=== PATIENT | female | born 1955 | race Caucasian/White ===

== ENCOUNTER → 2016-11-12 | Outpatient (CLI) | payer OTHER ==
--- NOTE | 2016-11-13 11:10 | MM ---
Reason for exam: screening (asymptomatic). Last mammogram was performed 1 year and 1 month ago. History: Patient is postmenopausal, has history of endometrial cancer at age 50, and had first child at age 31. Family history of breast cancer in mother at age 65. Cyst aspiration of the left breast. Cyst aspiration of the right breast. Physical Findings: A clinical breast exam by your physician is recommended on an annual basis and results should be correlated with mammographic findings. MG Screening Mammo w CAD Bilateral CC and MLO view(s) were taken. Prior study comparison: October 07, 2015, bilateral MG screening mammo w CAD. September 02, 2014, bilateral MG screening mammo w CAD. August 27, 2013, [facility] DIGITAL LEFT BREAST MAMMOGRAM w/CAD. The breast tissue is heterogeneously dense. This may lower the sensitivity of mammography. No significant changes when compared with prior studies. ASSESSMENT: Negative, BI-RAD 1 RECOMMENDATION: Routine screening mammogram of both breasts in 1 year.
== END | disposition home or self-care (01) ==
LOC: RADMAMWWP 10:16
PROVIDERS: ATTEND Obstetrics & Gynecology
DX: Z12.31 Encounter for screening mammogram for malignant neoplasm of breast (principal); Z80.3 Family history of malignant neoplasm of breast

== ENCOUNTER → 2017-12-11 | Outpatient (CLI) | payer OTHER ==
--- NOTE | 2017-12-13 10:37 | MM ---
Reason for exam: screening (asymptomatic). Last mammogram was performed 1 year and 1 month ago. History: Patient is postmenopausal, has history of other cancer at age 50, and had first child at age 31. Family history of breast cancer in mother at age 65. Cyst aspiration of the left breast. Cyst aspiration of the right breast. Physical Findings: A clinical breast exam by your physician is recommended on an annual basis and results should be correlated with mammographic findings. MG Screening Mammo w CAD Bilateral CC and MLO view(s) were taken. Prior study comparison: November 12, 2016, bilateral MG screening mammo w CAD. October 07, 2015, bilateral MG screening mammo w CAD. The breast tissue is heterogeneously dense. This may lower the sensitivity of mammography. No significant changes when compared with prior studies. ASSESSMENT: Negative, BI-RAD 1 RECOMMENDATION: Routine screening mammogram of both breasts in 1 year.
== END | disposition home or self-care (01) ==
LOC: RADMAMWWP 09:53
PROVIDERS: ATTEND Obstetrics & Gynecology
DX: Z12.31 Encounter for screening mammogram for malignant neoplasm of breast (principal); Z80.3 Family history of malignant neoplasm of breast
CPT/HCPCS: 77067

== ENCOUNTER → 2018-03-20 | Outpatient (CLI) | payer OTHER ==
--- NOTE | 2018-03-20 08:33 | US ---
EXAMINATION TYPE: US abdomen limited DATE OF EXAM: 03/20/2018 COMPARISON: CT 2011, US 2009 CLINICAL HISTORY: R94.5 Abnormal Liver Functions. Elevated liver enzymes, history of cholecystectomy. EXAM MEASUREMENTS: Liver Length: 16.7 cm Gallbladder Wall: surgically absent CBD: 0.5 cm Right Kidney: 10.0 x 5.0 x 5.4 cm Difficult and limited study due to patient body habitus Pancreas: visualized portions wnl, limited by overlying midline bowel gas Liver: increased attenuation, decreased visualization of vessels, increased echogenicity throughout, heterogeneous, 2.0 x 2.3 x 2.2cm cystic lesion near gallbladder fossa Gallbladder: surgically absent Evidence for sonographic Persaud's sign: no CBD: visualized portions wnl, limited by overlying bowel gas Right Kidney: 0.4cm echogenic focus mid pole IMPRESSION: 1. Findings most compatible with hepatic steatosis appearing moderate in degree with solitary anechoi c hepatic cyst measuring up to 2.3 cm. 2. Nonobstructing 4 mm right renal calculus. 3. Limited visualization of the pancreas.
== END ==
LOC: RADUSWWP 07:28
PROVIDERS: ATTEND Internal Medicine
DX: R94.5 Abnormal results of liver function studies (principal)
CPT/HCPCS: 76705

== ENCOUNTER → 2018-12-15 | Outpatient (CLI) | payer OTHER ==
--- NOTE | 2018-12-16 13:53 | MM ---
Reason for exam: screening (asymptomatic). Last mammogram was performed 1 year ago. History: Patient is postmenopausal, has history of other cancer at age 50, and had first child at age 31. Family history of breast cancer in mother at age 65. Cyst aspiration of the left breast. Cyst aspiration of the right breast. Physical Findings: A clinical breast exam by your physician is recommended on an annual basis and results should be correlated with mammographic findings. MG 3D Screening Mammo W/Cad Bilateral CC and MLO view(s) were taken. Prior study comparison: December 11, 2017, bilateral MG screening mammo w CAD. November 12, 2016, bilateral MG screening mammo w CAD. The breast tissue is heterogeneously dense. This may lower the sensitivity of mammography. No suspicious abnormality. No significant changes when compared with prior studies. ASSESSMENT: Negative, BI-RAD 1 RECOMMENDATION: Routine screening mammogram of both breasts in 1 year.
== END | disposition home or self-care (01) ==
LOC: RADMAMWWP 09:20
PROVIDERS: ATTEND Obstetrics & Gynecology
DX: Z12.31 Encounter for screening mammogram for malignant neoplasm of breast (principal); Z80.3 Family history of malignant neoplasm of breast
CPT/HCPCS: 77063; 77067

== ENCOUNTER 2018-12-19 07:08 | Day surgery (SDC) | payer OTHER ==
[2018-12-17 09:39] VITALS: BMI 29.9
[~2018-12-19 07:08] MED LIST: LACTATED RINGERS 1,000 ML IV SCH; LIDOCAINE 1% 20 ML VIAL (10MG/ML) FOR IV START INTRADERMA PRN
[2018-12-19 07:25] VITALS: TEMP 97.8
[2018-12-19] MEDS ORDERED: ONDANSETRON 4 MG/2 ML VIAL IVP STA (07:35)
[2018-12-19] MEDS ORDERED: ONDANSETRON 4 MG/2 ML VIAL IVP ONE (07:36)
[2018-12-19] MEDS ORDERED: fentaNYL (PF) 50 MCG/ML 2 ML AMP ONE (07:51)
[2018-12-19] MEDS ORDERED: PROPOFOL 10 MG/ML 20 ML VIAL IV ONE (07:51)
[2018-12-19] MEDS ORDERED: MIDAZOLAM 2 MG/2 ML VIAL ONE (07:51)
--- NOTE | 2018-12-19 07:58 | P.GSHP ---
History of Present Illness H&P Date: 12/19/18 Chief Complaint: Colon cancer screening Patient here today for colonoscopy. Last colonoscopy 5 years ago. History of colon polyps. No bowel complaints. No family history of colon cancer. Past Medical History Past Medical History: Cancer, GERD/Reflux, Hypertension, Thyroid Disorder Additional Past Medical History / Comment(s): VULVA CANCER. KIDNEY STONES. SEASONAL ALLERGIES History of Any Multi-Drug Resistant Organisms: None Reported Past Surgical History: Cholecystectomy Additional Past Surgical History / Comment(s): COLONOSCOPY. KIDNEY STONE REMOVAL. VULVA CANCER REMOVAL-SEVERAL PROCEDURES Past Anesthesia/Blood Transfusion Reactions: Postoperative Nausea & Vomiting (PONV) Smoking Status: Former smoker - Past Family History Father Family Medical History: Cancer Mother Family Medical History: Cancer Sister(s) Family Medical History: Cancer Medications and Allergies Home Medications Medication Instructions Recorded Confirmed Type Aspirin [Adult Low Dose Aspirin EC] 81 mg PO DAILY 12/17/18 12/19/18 History Calcium Carbonate/Vitamin D3 1 tab PO DAILY 12/17/18 12/19/18 History [Calcium 600-Vit D3 200 Tablet] Levothyroxine Sodium [Synthroid] 50 mcg PO DAILY 12/17/18 12/19/18 History Montelukast [Singulair] 10 mg PO DAILY 12/17/18 12/19/18 History Multivit/Folic Acid/Vit K1 1 tab PO DAILY 12/17/18 12/19/18 History [One-A-Day Women's 50 Plus Tab] Omeprazole 20 mg PO DAILY 12/17/18 12/19/18 History Valsartan/Hydrochlorothiazide 1 each PO DAILY 12/17/18 12/19/18 History [Valsartan-Hctz 80-12.5 mg Tab] Vit C/E/Zn/Coppr/Lutein/Zeaxan 1 each PO DAILY 12/17/18 12/19/18 History [Preservision Areds 2 Softgel] Allergies Allergy/AdvReac Type Severity Reaction Status Date / Time ciprofloxacin [From Cipro] Allergy STIFF NECK Verified 12/17/18 09:31 Sulfa (Sulfonamide Allergy Anaphylaxis Verified 12/17/18 09:31 Antibiotics) Surgical - Exam Vital Signs Temp Pulse Resp BP Pulse Ox 97.8 F 110 H 20 159/79 94 L 12/19/18 07:23 12/19/18 07:23 12/19/18 07:23 12/19/18 07:23 12/19/18 07:23 Physical exam: General: Well-developed, well-nourished HEENT: Normocephalic, sclerae nonicteric Abdomen: Nontender, nondistended Extremities: No edema Neuro: Alert and oriented Assessment and Plan (1) Colon cancer screening Narrative/Plan: Will proceed with colonoscopy at this time Current Visit: Yes Status: Acute Code(s): Z12.11 - ENCOUNTER FOR SCREENING FOR MALIGNANT NEOPLASM OF COLON SNOMED Code(s): 369085184
--- NOTE | 2018-12-19 08:14 | P.PCN ---
Date of Procedure: 12/19/18 Procedure(s) Performed: PREOPERATIVE DIAGNOSIS: Colon cancer screening POSTOPERATIVE DIAGNOSIS: Small sigmoid polyp PROCEDURE: Colonoscopy with snare polypectomy ANESTHESIA: MAC SURGEON: Tiburcio Villarreal M.D. SPECIMENS: None ENDOSCOPIC PROCEDURE: The patient was placed on the endoscopy table in the left decubitus position. The Olympus colonoscope was inserted into the anus and passed under direct visualization to the base of the cecum. The appendiceal orifice was visualized. From that point the scope was slowly withdrawn inspecting all surfaces carefully. There were no neoplastic inflammatory or polypoid lesions throughout the cecum, ascending, transverse, and descending colon. In the sigmoid colon was noted be a small polyp. This was removed using the snare with cautery technique. In the process of removal of small polyp was noted to be fulgurated completely. No specimen was obtained. There was no visible diverticulosis. Digital rectal examination was normal. The patient was taken to the recovery room in stable condition per anesthesia guidelines. RECOMMENDATIONS: Advance diet. Follow colonoscopy 5 years.
[2018-12-19 08:37] VITALS: BP 137/78; PULSE 102; RESP 18
== END 2018-12-19 08:59 | disposition home or self-care (01) ==
LOC: ORWHC2ENDO 07:08
PROVIDERS: ATTEND Surgery
DX: Z12.11 Encounter for screening for malignant neoplasm of colon (principal); K63.5 Polyp of colon; Z86.010 Personal history of colon polyps; K21.9 Gastro-esophageal reflux disease without esophagitis; I10 Essential (primary) hypertension; E07.9 Disorder of thyroid, unspecified; Z85.89 Personal history of malignant neoplasm of other organs and systems; Z87.442 Personal history of urinary calculi; Z90.49 Acquired absence of other specified parts of digestive tract; Z87.891 Personal history of nicotine dependence; Z79.82 Long term (current) use of aspirin; Z79.890 Hormone replacement therapy; Z79.899 Other long term (current) drug therapy; Z88.1 Allergy status to other antibiotic agents; Z88.2 Allergy status to sulfonamides; Z91.09 Other allergy status, other than to drugs and biological substances
CPT/HCPCS: 45385; J2250; J2405; J3010; J2704

== ENCOUNTER → 2020-03-04 | Outpatient (CLI) | payer OTHER ==
--- NOTE | 2020-03-07 09:38 | MM ---
Reason for exam: screening (asymptomatic). Last mammogram was performed 1 year and 3 months ago. History: Patient is postmenopausal, has history of other cancer at age 50, and had first child at age 31. Family history of breast cancer in mother at age 65. Cyst aspiration of the left breast. Cyst aspiration of the right breast. Physical Findings: A clinical breast exam by your physician is recommended on an annual basis and results should be correlated with mammographic findings. MG 3D Screening Mammo W/Cad Bilateral CC and MLO view(s) were taken. Prior study comparison: December 15, 2018, bilateral MG 3d screening mammo w/cad. December 11, 2017, bilateral MG screening mammo w CAD. The breast tissue is extremely dense which could obscure a lesion on mammography. No significant changes when compared with prior studies. ASSESSMENT: Benign, BI-RAD 2 RECOMMENDATION: Routine screening mammogram of both breasts in 1 year.
== END | disposition home or self-care (01) ==
LOC: RADMAMWWP 10:51
PROVIDERS: ATTEND Obstetrics & Gynecology
DX: Z12.31 Encounter for screening mammogram for malignant neoplasm of breast (principal); Z80.3 Family history of malignant neoplasm of breast
CPT/HCPCS: 77063; 77067

== ENCOUNTER 2020-10-13 16:37 | Emergency (ER) | payer MEDICARE, OTHER ==
[2020-10-13] MEDS ORDERED: ACETAMINOPHEN TAB 500 MG TAB PO STA (18:29)
--- NOTE | 2020-10-13 18:33 | ED ---
General Adult HPI - General Chief complaint: Upper Respiratory Infection Stated complaint: Covid, abd pain, headache, fever Time Seen by Provider: 10/13/20 18:00 Source: patient Mode of arrival: ambulatory Limitations: no limitations - History of Present Illness Initial comments: 65-year-old female presents to the emergency department with a chief complaint of cough and fatigue. Patient reports she developed symptoms about 9 days ago and 2 days after she tested positive for Covid. Patient was able to show me the results on her phone. Patient reports her symptoms are not improving. She continues to have generalized take a nonproductive cough. States she did have a fever at home has been taking Tylenol and Mucinex with no significant improveme nt his symptoms. Reports decreased appetite and generalized myalgias. She denies any chest pain or shortness of breath. She does report loss of smell and taste. - Related Data Home Medications Medication Instructions Recorded Confirmed Aspirin [Adult Low Dose Aspirin EC] 81 mg PO DAILY 12/17/18 12/19/18 Calcium Carbonate/Vitamin D3 1 tab PO DAILY 12/17/18 12/19/18 [Calcium 600-Vit D3 200 Tablet] Levothyroxine Sodium [Synthroid] 50 mcg PO DAILY 12/17/18 12/19/18 Montelukast [Singulair] 10 mg PO DAILY 12/17/18 12/19/18 Multivit/Folic Acid/Vit K1 1 tab PO DAILY 12/17/18 12/19/18 [One-A-Day Women's 50 Plus Tab] Omeprazole 20 mg PO DAILY 12/17/18 12/19/18 Valsartan/Hydrochlorothiazide 1 each PO DAILY 12/17/18 12/19/18 [Valsartan-Hctz 80-12.5 mg Tab] Vit C/E/Zn/Coppr/Lutein/Zeaxan 1 each PO DAILY 12/17/18 12/19/18 [Preservision Areds 2 Softgel] Allergies Allergy/AdvReac Type Severity Reaction Status Date / Time ciprofloxacin [From Cipro] Allergy STIFF NECK Verified 10/13/20 16:39 Sulfa (Sulfonamide Allergy Anaphylaxis Verified 10/13/20 16:39 Antibiotics) Review of Systems ROS Statement: Those systems with pertinent positive or pertinent negative responses have been documented in the HPI. ROS Other: All systems not noted in ROS Statement are negative. Past Medical History Past Medical History: Cancer, GERD/Reflux, Hypertension, Thyroid Disorder Additional Past Medical History / Comment(s): VULVA CANCER. KIDNEY STONES. SEASONAL ALLERGIES History of Any Multi-Drug Resistant Organisms: None Reported Past Surgical History: Cholecystectomy Additional Past Surgical History / Comment(s): COLONOSCOPY. KIDNEY STONE REMOVAL. VULVA CANCER REMOVAL-SEVERAL PROCEDURES Past Anesthesia/Blood Transfusion Reactions: Postoperative Nausea & Vomiting (PONV) Past Psychological History: No Psychological Hx Reported Smoking Status: Never smoker Past Alcohol Use History: None Reported Past Drug Use History: None Reported - Past Family History Father Family Medical History: Cancer Mother Family Medical History: Cancer Sister(s) Family Medical History: Cancer General Exam Limitations: no limitations General appearance: alert, in no apparent distress Head exam: Present: atraumatic, normocephalic, normal inspection Eye exam: Present: normal appearance, PERRL, EOMI Pupils: Present: normal accommodation ENT exam: Present: normal exam, normal oropharynx, mucous membranes moist, TM's normal bilaterally, normal external ear exam Neck exam: Present: normal inspection, full ROM. Absent: tenderness, lymphadenopathy Respiratory exam: Present: normal lung sounds bilaterally. Absent: respiratory distress, wheezes, rales, rhonchi, stridor, chest wall tenderness, accessory muscle use Cardiovascular Exam: Present: regular rate, normal rhythm, normal heart sounds. Absent: systolic murmur Extremities exam: Present: normal inspection, full ROM, normal capillary refill. Absent: tenderness, pedal edema, joint swelling Back exam: Present: normal inspection, full ROM. Absent: tenderness, CVA tenderness (R), CVA tenderness (L) Neurological exam: Present: alert, oriented X3, CN II-XII intact, normal gait Psychiatric exam: Present: normal affect, normal mood Skin exam: Present: warm, dry, intact, normal color Course Vital Signs 10/13/20 10/13/20 10/13/20 16:39 18:18 19:06 Temperature 98.8 F 103.3 F H Pulse Rate 117 H 100 Respiratory 20 18 Rate Blood Pressure 148/79 133/88 O2 Sat by Pulse 98 95 Oximetry Medical Decision Making - Medical Decision Making 65-year-old female presents emergency Department with a chief complaint of C ovid. On physical examination, patient is well-appearing. Lungs are clear to auscultation. Vital signs are within normal limits aside from slight tachycardia likely secondary to to fever. Patient was given Tylenol. Chest x- ray reveals an early developing pneumonia. She does not have any chest pain or shortness of breath. She fits the criteria for a monoclonal antibody. This was administered with 1 hour observation after administration. At this time, patient care signed off to Dr. Chaney. Disposition Clinical Impression: Pneumonia due to COVID-19 virus Disposition: HOME SELF-CARE Condition: Stable Instructions (If sedation given, give patient instructions): Coronavirus Disease 2019 (COVID-19) Additional Instructions: Please return to the Emergency Department if symptoms worsen or any other concerns. Is patient prescribed a controlled substance at d/c from ED?: No Referrals: Catracho Santillan MD [Primary Care Provider] - 1-2 days Time of Disposition: 19:33
--- NOTE | 2020-10-13 18:41 | XR ---
EXAMINATION TYPE: XR chest 1V portable DATE OF EXAM: 10/13/2020 HISTORY: Shortness of breath. COMPARISON: None. TECHNIQUE: Single view of the chest is submitted. FINDINGS: Demonstrated are scattered senescent parenchymal change. Vague densities within the midlung zones may reflect developing pneumonia. Correlate clinically. The heart is stable. Hilar and mediastinal structures are within normal limits. Degenerative changes are seen of the dorsal spine. IMPRESSION: 1. Vague densities within the midlung zones may reflect developing pneumonia. Correlate clinically.
[2020-10-13] MEDS ORDERED: BAMLANIVIMAB (EUA) 700 MG, ETESEVIMAB (EUA) 1,400 MG in SODIUM CHLORIDE 0.9% 50 ML IVPB ONE (18:45)
[2020-10-13] MEDS ORDERED: SODIUM CHLORIDE 0.9% 50 ML IVPB ONE (18:45)
[2020-10-13 19:36] VITALS: BP 132/81
[2020-10-13 20:58] VITALS: PULSE 74; RESP 15; TEMP 99.4
== END 2020-10-13 20:51 | disposition home or self-care (01) ==
LOC: EC 16:37
DX: U07.1 COVID-19 (principal); J12.82 Pneumonia due to coronavirus disease 2019; I10 Essential (primary) hypertension; K21.9 Gastro-esophageal reflux disease without esophagitis; Z85.44 Personal history of malignant neoplasm of other female genital organs; Z79.82 Long term (current) use of aspirin; Z88.1 Allergy status to other antibiotic agents; Z88.2 Allergy status to sulfonamides
CPT/HCPCS: 71045; 99284; Q0245

== ENCOUNTER 2020-10-14 17:53 | Inpatient (IN) | payer MEDICARE ==
[2020-10-14] MEDS ORDERED: DEXAMETHASONE SOD PHOSPHATE 10 MG/ML 1 ML VIAL IV STA (19:13)
[2020-10-14] MEDS ORDERED: ENOXAPARIN 40 MG/0.4 ML SYRINGE SQ STA (19:24)
[2020-10-14] MEDS ORDERED: ACETAMINOPHEN TAB 325 MG TAB PO PRN (19:25)
[2020-10-14] MEDS ORDERED: NALOXONE 0.4 MG/ML 1 ML VIAL IV PRN (19:25)
--- NOTE | 2020-10-14 19:29 | ED ---
General Adult HPI - General Chief complaint: Shortness of Breath Stated complaint: Covid+/headache/fever Time Seen by Provider: 10/14/20 19:12 Source: patient, RN notes reviewed, old records reviewed Mode of arrival: ambulatory Limitations: no limitations - History of Present Illness Initial comments: 65-year-old female who had been diagnosed with coronavirus approximately 10 days ago presenting for evaluation of cough, headache. Patient was seen in the emergency department yesterday with similar complaints, she was given monoclonal antibodies. She had been discharged home with stable vitals. Primary care had called to check on the patient today and had requested that the patient presented emergency department for admission. Patient does report report a persistent cough and mild dyspnea. Headache as well as fever. - Related Data Home Medications Medication Instructions Recorded Confirmed Aspirin [Adult Low Dose Aspirin EC] 81 mg PO DAILY 12/17/18 12/19/18 Calcium Carbonate/Vitamin D3 1 tab PO DAILY 12/17/18 12/19/18 [Calcium 600-Vit D3 200 Tablet] Levothyroxine Sodium [Synthroid] 50 mcg PO DAILY 12/17/18 12/19/18 Montelukast [Singulair] 10 mg PO DAILY 12/17/18 12/19/18 Multivit/Folic Acid/Vit K1 1 tab PO DAILY 12/17/18 12/19/18 [One-A-Day Women's 50 Plus Tab] Omeprazole 20 mg PO DAILY 12/17/18 12/19/18 Valsartan/Hydrochlorothiazide 1 each PO DAILY 12/17/18 12/19/18 [Valsartan-Hctz 80-12.5 mg Tab] Vit C/E/Zn/Coppr/Lutein/Zeaxan 1 each PO DAILY 12/17/18 12/19/18 [Preservision Areds 2 Softgel] Allergies Allergy/AdvReac Type Severity Reaction Status Date / Time ciprofloxacin [From Cipro] Allergy STIFF NECK Verified 10/14/20 18:26 Sulfa (Sulfonamide Allergy Anaphylaxis Verified 10/14/20 18:26 Antibiotics) Review of Systems ROS Statement: Those systems with pertinent positive or pertinent negative responses have been documented in the HPI. ROS Other: All systems not noted in ROS Statement are negative. Past Medical History Past Medical History: Cancer, GERD/Reflux, Hypertension, Thyroid Disorder Additional Past Medical History / Comment(s): VULVA CANCER. KIDNEY STONES. SEA IMELDA ALLERGIES History of Any Multi-Drug Resistant Organisms: None Reported Past Surgical History: Cholecystectomy Additional Past Surgical History / Comment(s): COLONOSCOPY. KIDNEY STONE REMOVAL. VULVA CANCER REMOVAL-SEVERAL PROCEDURES Past Anesthesia/Blood Transfusion Reactions: Postoperative Nausea & Vomiting (PONV) Past Psychological History: No Psychological Hx Reported Smoking Status: Never smoker Past Alcohol Use History: None Reported Past Drug Use History: None Reported - Past Family History Father Family Medical History: Cancer Mother Family Medical History: Cancer Sister(s) Family Medical History: Cancer General Exam Limitations: no limitations General appearance: alert, in no apparent distress Head exam: Present: atraumatic, normocephalic Eye exam: Present: normal appearance, PERRL ENT exam: Present: normal exam Neck exam: Present: normal inspection. Absent: tenderness, meningismus Respiratory exam: Present: rhonchi. Absent: respiratory distress, wheezes Cardiovascular Exam: Present: regular rate, normal rhythm GI/Abdominal exam: Present: soft. Absent: distended, tenderness, guarding Extremities exam: Present: normal inspection, normal capillary refill. Absent: pedal edema, calf tenderness Neurological exam: Present: alert, oriented X3, CN II-XII intact. Absent: motor sensory deficit Psychiatric exam: Present: normal affect, normal mood Skin exam: Present: warm, dry, intact. Absent: cyanosis, diaphoretic Course Vital Signs 10/14/20 18:21 Temperature 98.1 F Pulse Rate 100 Respiratory 20 Rate Blood Pressure 132/80 O2 Sat by Pulse 96 Oximetry Medical Decision Making - Medical Decision Making 65-year-old female with coronavirus, day 10. Sent in by primary care physician for admission. Dr. Santillan recommending steroids, Remdesivir, and Lovenox. Labs have been ordered including inflammatory markers. X-ray which was performed yesterday did show a bilateral pneumonia. Patient given Lovenox and Decadron in the emergency department. She had received Guillermo antibodies yesterday. Pulmonary placed on consult. Disposition Clinical Impression: Pneumonia due to COVID-19 virus Disposition: ADMITTED IP TO THIS HOSP Condition: Stable Is patient prescribed a controlled substance at d/c from ED?: No Referrals: Catracho Santillan MD [Primary Care Provider] - 1-2 days Decision to Admit Reason: Admit from EC Decision Date: 10/14/20 Decision Time: 19:29
[2020-10-14 20:00] LABS: Basophils % (A) 1 %; Eosinophils % (A) 0 %; HCT 41.8 % (34.0-46.0); Lymphocytes # (A) 0.6 k/uL (1.0-4.8); Lymphocytes % (A) 13 %; MCHC 35.8 g/dL (31.0-37.0); MCV 86.6 fL (80.0-100.0); Mean Platelet Volume 8.2; Monocytes # (A) 0.2 k/uL (0-1.0); Monocytes % (A) 5 %; Neutrophils % (A) 80 %; Platelet Count 182 k/uL (150-450); RBC 4.83 m/uL (3.80-5.40); RDW 12.4 % (11.5-15.5); WBC 4.9 k/uL (3.8-10.6)
[2020-10-14 20:11] LABS: Carbon Dioxide 33 mmol/L (22-30); Chloride 95 mmol/L (98-107); Glucose 117 mg/dL (74-99); Potassium 3.1 mmol/L (3.5-5.1); Sodium 138 mmol/L (137-145)
[2020-10-14 20:12] LABS: ALT 65 U/L (4-34); AST 72 U/L (14-36); African American GFR (CKD) >90 (>60 ml/min/1.73 sqM); Albumin 4.4 g/dL (3.5-5.0); Alkaline Phosphatase 153 U/L (38-126); Anion Gap 10 mmol/L; Blood Urea Nitrogen 13 mg/dL (7-17); Calcium 9.2 mg/dL (8.4-10.2); LDH 948 U/L (313-618); Non-African American GFR(CKD) >90 (>60 ml/min/1.73 sqM); Total Bilirubin 0.9 mg/dL (0.2-1.3); Total Protein 7.3 g/dL (6.3-8.2)
[2020-10-14 20:27] LABS: D-Dimer 0.52 mg/L FEU (<0.60); Partial Thromboplastin Time 22.5 sec (22.0-30.0); Prothrombin Time 10.2 sec (9.0-12.0)
[2020-10-14] MEDS ORDERED: POTASSIUM CHLORIDE ER 20 MEQ TAB.ER PO STA (20:31)
[2020-10-14] MEDS: SODIUM CHLORIDE 0.9% 1,000 ML IV SCH (20:33)
[2020-10-15 03:43] LABS: Ferritin 1754.9 ng/mL (10.0-291.0)
[2020-10-15] MEDS: SODIUM CHLORIDE 0.9% 1,000 ML IV SCH ×2 (06:04→20:07)
[2020-10-15] MEDS: VALSARTAN 80 MG TAB PO SCH (11:38)
[2020-10-15] MEDS: ASPIRIN 81 MG PO SCH (11:38)
[2020-10-15] MEDS: VIT A,C & E-LUTEIN-MINERALS 1 EACH TAB PO SCH (11:38)
[2020-10-15] MEDS: hydroCHLOROthiazide 12.5 MG CAP PO SCH (11:38)
[2020-10-15] MEDS: ENOXAPARIN 40 MG/0.4 ML SYRINGE SQ SCH (11:39)
[2020-10-15] MEDS: DEXAMETHASONE SOD PHOSPHATE 10 MG/ML 1 ML VIAL IV SCH (11:39)
[2020-10-15] MEDS: PANTOPRAZOLE 40 MG TABLET PO SCH (11:39)
[2020-10-15] MEDS: LEVOTHYROXINE 50 MCG TAB PO SCH (11:39)
--- NOTE | 2020-10-15 11:39 | P.CNPUL ---
History of Present Illness Consult date: 10/15/20 Requesting physician: Catracho Santillan Reason for consult: other Chief complaint: Fever. History of present illness: Pulmonary consult dated 10/15/2020. 65-year-old female, who apparently was diagnosed with coronavirus infection 10 or 11 days ago. She presented to the emergency room the day before, and apparently was given monoclonal antibodies, I suspect BAM/ETE. She had stable vitals the day before, and a chest x-ray was really unimpressive. Apparently the patient was conversing with her primary care physician, and because of ongoing fever, as well as headache, the patient was directed to come back into the emergency room. She tells me, she's not really coughing or having any shortness of breath. No chest congestion. Is no phlegm production. No nausea, vomiting, diarrhea or abdominal pain. Mostly fever and headache more than anything else. I told she was not a candidate for REM. She certainly is not sick enough to receive convalescent plasma or TOCI. Since she's really not having any respiratory issues, she is not a candidate for Decadron. Finally, her d-dimer is normal and therefore she is not a candidate for Lovenox. In fact, in my opinion, she should be at home, using Tylenol and Motrin for temperature control, and taking vitamin C, vitamin D3, and zinc. She herself would rather be home at this time according to how she feels. She has a history of gastroesophageal reflux disease hypothyroidism, kidney stones, seasonal ALLERGIES, and cancer of the vulva. White count 4.9, hemoglobin 15, hematocrit 41.8, platelet count 182,000. PT/INR PTT all normal. D-dimer normal. Sodium 138, potassium 3.1, chlorides 95, CO2 33, anion gap 10, BUN 13, creatinine 0.65. AST and ALTs are mildly elevated and 72 and 65 respectively. LDH is 948 with a C-reactive protein and 9. Pro-calcitonin level was 0.22. The chest x-ray was done the day before when she was in the emergency room and received monoclonal antibody. That chest x-ray is reviewed. Review of Systems REVIEW OF SYSTEMS: CONSTITUTIONAL: Fever. NEUROLOGIC: Headache. HEENT: [ Negative.] CARDIAC: [Negative.] PULMONARY: [Negative.] GI: [Negative.] : [Negative.] RHEUMATOLOGIC: [ Negative.] IMMUNOLOGIC: [ Negative.] ENDOCRINE: [Negative. ] DERMATOLOGIC: [Negative.] Past Medical History Past Medical History: Cancer, GERD/Reflux, Hypertension, Thyroid Disorder Additional Past Medical History / Comment(s): VULVA CANCER. KIDNEY STONES. SEASONAL ALLERGIES History of Any Multi-Drug Resistant Organisms: None Reported Past Surgical History: Cholecystectomy Additional Past Surgical History / Comment(s): COLONOSCOPY. KIDNEY STONE REMOVAL. VULVA CANCER REMOVAL-SEVERAL PROCEDURES Past Anesthesia/Blood Transfusion Reactions: Postoperative Nausea & Vomiting (PONV) Past Psychological History: No Psychological Hx Reported Smoking Status: Never smoker Past Alcohol Use History: None Reported Additional Past Alcohol Use History / Comment(s): QUIT SMOKING IN 20'S Past Drug Use History: None Reported - Past Family History Father Family Medical History: Cancer Mother Family Medical History: Cancer Sister(s) Family Medical History: Cancer Medications and Allergies Home Medications Medication Instructions Recorded Confirmed Type Aspirin [Adult Low Dose Aspirin EC] 81 mg PO DAILY 12/17/18 10/14/20 History Calcium Carbonate/Vitamin D3 1 tab PO DAILY 12/17/18 10/14/20 History [Calcium 600-Vit D3 200 Tablet] Levothyroxine Sodium [Synthroid] 50 mcg PO DAILY 12/17/18 10/14/20 History Montelukast [Singulair] 10 mg PO HS 12/17/18 10/14/20 History Multivit/Folic Acid/Vit K1 1 tab PO DAILY 12/17/18 10/14/20 History [One-A-Day Women's 50 Plus Tab] Omeprazole 20 mg PO DAILY 12/17/18 10/14/20 History Valsartan/Hydrochlorothiazide 1 tab PO DAILY 12/17/18 10/14/20 History [Valsartan-Hctz 80-12.5 mg Tab] Vit C/E/Zn/Coppr/Lutein/Zeaxan 1 cap PO DAILY 12/17/18 10/14/20 History [Preservision Areds 2 Softgel] Allergies Allergy/AdvReac Type Severity Reaction Status Date / Time Sulfa (Sulfonamide Allergy Anaphylaxis Verified 10/14/20 19:49 Antibiotics) ciprofloxacin [From Cipro] AdvReac STIFF NECK Verified 10/14/20 19:49 Physical Exam Osteopathic Statement: *. No significant issues noted on an osteopathic structural exam other than those noted in the History and Physical/Consult. Vitals: Vital Signs Temp Pulse Pulse Resp BP BP Pulse Ox 10/15/20 10:59 99.0 F 93 20 135/68 94 L 10/15/20 08:10 93 20 10/15/20 05:42 98.1 F 88 112/69 92 L 10/15/20 02:21 98.4 F 91 125/78 90 L 10/14/20 21:48 101.1 F H 93 138/83 94 L 10/14/20 21:40 93 18 10/14/20 20:31 93 18 144/86 93 L 10/14/20 18:21 98.1 F 100 20 132/80 96 Intake and Output 10/14/20 10/15/20 10/15/20 22:59 06:59 14:59 Other: # Voids 2 Weight 81.647 kg No acute distress, oriented 3. No conversational dyspnea or use of accessory muscles. HEENT examination is grossly unremarkable. Neck supple. Full range of motion. No adenopathy thyromegaly or neck vein distention. Cardiovascular examination reveals regular rhythm rate. S1-S2 normal. No S3 or S4. No discernible murmur noted. HR is 93 bpm. Lungs reveal clear breath sounds. Breath sounds are equal bilaterally. No adventitious lung sounds including wheezes rhonchi or crackles. Abdomen soft bowel sounds are heard. No masses or tenderness. Extremities are intact. No cyanosis clubbing or edema. Skin is without rash or lesion. Neurologic examination is brief but nonfocal. Results - Laboratory Findings CBC and BMP: 10/14/20 19:40 10/14/20 19:40 PT/INR, D-dimer PT 10.2 sec (9.0-12.0) 10/14/20 19:40 INR 1.0 (<1.2) 10/14/20 19:40 D-Dimer 0.52 mg/L FEU (<0.60) 10/14/20 19:40 Abnormal lab findings: Abnormal Labs 10/14/20 10/14/20 10/14/20 19:40 19:40 19:40 Lymphocytes # 0.6 L Potassium 3.1 L Chloride 95 L Carbon Dioxide 33 H Glucose 117 H Ferritin 1754.9 H AST 72 H ALT 65 H Alkaline Phosphatase 153 H Lactate Dehydrogenase 948 H C-Reactive Protein 9.0 H Procalcitonin 0.22 H Assessment and Plan Assessment: Coronavirus infection, without coronavirus pneumonia or any pulmonary complaints at this time, status post BAM/ETE. History of seasonal ALLERGIES. History of gastroesophageal reflux disease. History of vulvar cancer. History of hypothyroidism. History of kidney stones. Plan: Plan dated 10/15/2020. In my opinion, the patient should be discharged home with temperature control is able Tylenol and Motrin. Also, the patient should be instructed take vitamin C, vitamin D3, and zinc. The patient is not a candidate for REM. She is outside the window. She did receive monoclonal antibody. She is not sick enough to receive convalescent plasma or TOCI. Since she's not having any pulmonary complaints, she's not a candidate for Decadron. He is also not a candidate for Lovenox. Additional recommendations and suggestions are forthcoming. We'll see the patient when necessary. Time with Patient: Greater than 30
[2020-10-15] MEDS: MULTIVITAMINS, THERA 1 EACH TAB PO SCH (12:16)
--- NOTE | 2020-10-15 15:01 | P.HPIM ---
History of Present Illness H&P Date: 10/15/20 Audrey Ceja, a 65-year-old female who presented to [facility] emergency room with a chief complaint of cough and worsening shortness of breath, patient was diagnosed with COVID-19 infection at a walk in clinic 10 days prior to this presentation, initially her symptoms were minimal however she started developing worsening cough and shortness of breath, on the night prior to this admission she presented to emergency room with similar symptoms at that time she was given infusion of BAM/ETE and was discharged home, however her symptoms continue to worsen and she presented again to emergency room for further evaluation. Chest x-ray was done on the first presentation to emergency room on 10/13/2020 and revealed vague densities within the mid lung zones that may reflect developing pneumonia, chest x-ray was not repeated at this time. Patient was evaluated in the emergency room, vital examination on presentation revealed a temperature of 98.1 pulse 100 respiration 20 blood pressure 132/80 and pulse ox 96% on room air, during the last night patient had an elevated temperature of 101.1 and a decreased O2 sat duration down to 90% on room air, laboratory data revealed a white blood count of 4.9 hemoglobin 15.0 platelet count 182 sodium 138 potassium 3.1 chloride 95 CO2 33 BUN 13 creatinine 0.65, liver enzymes were slightly elevated with AST 72 a LT 65 and alkaline phosp hatase 153 LDH was elevated at 948 pro-calcitonin slightly high at 0.22 patient was started on IV Decadron and subcu Lovenox and was admitted to medical floor for further evaluation and treatment. Past Medical History Past Medical History: Cancer, GERD/Reflux, Hypertension, Thyroid Disorder Additional Past Medical History / Comment(s): VULVA CANCER. KIDNEY STONES. SEASONAL ALLERGIES History of Any Multi-Drug Resistant Organisms: None Reported Past Surgical History: Cholecystectomy Additional Past Surgical History / Comment(s): COLONOSCOPY. KIDNEY STONE REMOVAL. VULVA CANCER REMOVAL-SEVERAL PROCEDURES Past Anesthesia/Blood Transfusion Reactions: Postoperative Nausea & Vomiting (PONV) Past Psychological History: No Psychological Hx Reported Smoking Status: Never smoker Past Alcohol Use History: None Reported Additional Past Alcohol Use History / Comment(s): QUIT SMOKING IN 20'S Past Drug Use History: None Reported - Past Family History Father Family Medical History: Cancer Mother Family Medical History: Cancer Sister(s) Family Medical History: Cancer Medications and Allergies Home Medications Medication Instructions Recorded Confirmed Type Aspirin [Adult Low Dose Aspirin EC] 81 mg PO DAILY 12/17/18 10/14/20 History Calcium Carbonate/Vitamin D3 1 tab PO DAILY 12/17/18 10/14/20 History [Calcium 600-Vit D3 200 Tablet] Levothyroxine Sodium [Synthroid] 50 mcg PO DAILY 12/17/18 10/14/20 History Montelukast [Singulair] 10 mg PO HS 12/17/18 10/14/20 History Multivit/Folic Acid/Vit K1 1 tab PO DAILY 12/17/18 10/14/20 History [One-A-Day Women's 50 Plus Tab] Omeprazole 20 mg PO DAILY 12/17/18 10/14/20 History Valsartan/Hydrochlorothiazide 1 tab PO DAILY 12/17/18 10/14/20 History [Valsartan-Hctz 80-12.5 mg Tab] Vit C/E/Zn/Coppr/Lutein/Zeaxan 1 cap PO DAILY 12/17/18 10/14/20 History [Preservision Areds 2 Softgel] Allergies Allergy/AdvReac Type Severity Reaction Status Date / Time Sulfa (Sulfonamide Allergy Anaphylaxis Verified 10/14/20 19:49 Antibiotics) ciprofloxacin [From Cipro] AdvReac STIFF NECK Verified 10/14/20 19:49 Physical Exam Vitals: Vital Signs Temp Pulse Pulse Resp BP BP Pulse Ox 10/15/20 05:42 98.1 F 88 112/69 92 L 10/15/20 02:21 98.4 F 91 125/78 90 L 10/14/20 21:48 101.1 F H 93 138/83 94 L 10/14/20 21:40 93 18 10/14/20 20:31 93 18 144/86 93 L 10/14/20 18:21 98.1 F 100 20 132/80 96 Intake and Output 10/14/20 10/15/20 10/15/20 22:59 06:59 14:59 Other: # Voids 2 Weight 81.647 kg In general patient is alert and oriented ?-3 in no distress HEENT head normocephalic and atraumatic Neck is supple no JVD no goiter no lymphadenopathy no carotid bruit Chest examination reveals a few scattered crackles bilaterally no wheezing Cardiac exam reveals regular heart sounds S1 and S2 no gallops no murmurs Abdomen is soft nontender no organomegaly with normal bowel sounds Extremity exam reveals no edema no cyanosis or clubbing Neurological examination reveals no gross focal deficits Results CBC & Chem 7: 10/14/20 19:40 10/14/20 19:40 Labs: Abnormal Lab Results - Last 24 Hours (Table) 10/14/20 10/14/20 10/14/20 Range/Units 19:40 19:40 19:40 Lymphocytes # 0.6 L (1.0-4.8) k/uL Potassium 3.1 L (3.5-5.1) mmol/L Chloride 95 L (98-107) mmol/L Carbon Dioxide 33 H (22-30) mmol/L Glucose 117 H (74-99) mg/dL Ferritin 1754.9 H (10.0-291.0) ng/mL AST 72 H (14-36) U/L ALT 65 H (4-34) U/L Alkaline Phosphatase 153 H (38-126) U/L Lactate Dehydrogenase 948 H (313-618) U/L C-Reactive Protein 9.0 H (<1.0) mg/dL Procalcitonin 0.22 H (0.02-0.09) ng/mL Thrombosis Risk Factor Assmnt - Choose All That Apply Each Factor Represents 1 point: Obesity (BMI >25) Each Risk Factor Represents 2 Points: Age 61-74 years Thrombosis Risk Factor Assessment Total Risk Factor Score: 3 Thrombosis Risk Factor Assessment Level: Moderate Risk Assessment and Plan Plan: 1. COVID-19 infection with bilateral mid zones infiltrates on chest x-ray suggestive of pneumonia, patient had fever, shortness of breath and cough for the last 10 days, she had elevated temperature of 101.1 last night, patient received BAM/ETE on 10/13/2020 without significant improvement of her symptoms, symptoms improved after she received IV Decadron in the emergency room, at this time patient still having some cough otherwise no complaints, will continue to monitor will recheck chest x-ray in a.m.. 2. Mildly elevated liver enzymes, will monitor closely, with check liver ultrasound in the outpatient setting if not improving. 3. History of seasonal ALLERGIES maintained on Singulair 4. Underlying history of hypothyroidism 5. Underlying history of gastroesophageal reflux disease 6. Previous history of kidney stones 7. Previous history of valvular cancer Continue IV Decadron, inhaled bronchodilators, subcu Lovenox, Home medication reviewed and reordered Recheck chest x-ray in a.m. If improving and chest x-ray is not worsening Will discharge patient to home
[2020-10-15] MEDS: ALBUTEROL NEBULIZED 2.5 MG/3 ML INHALATION SCH ×2 (16:57→16:59)
[2020-10-15] MEDS ORDERED: MONTELUKAST 10 MG TAB PO SCH (21:00)
[2020-10-15] MEDS: ALBUTEROL HFA INHALER INHALATION SCH ×2 (21:16→23:56)
[2020-10-16] MEDS: ALBUTEROL HFA INHALER INHALATION SCH ×3 (03:52→11:32)
[2020-10-16] MEDS: LEVOTHYROXINE 50 MCG TAB PO SCH (05:54)
--- NOTE | 2020-10-16 06:58 | XR ---
EXAMINATION TYPE: XR chest 1V portable DATE OF EXAM: 10/16/2020 CLINICAL HISTORY: Difficulty breathing progress study. TECHNIQUE: Single AP portable frontal view of the chest is obtained. COMPARISON: Chest x-ray from 3 days earlier FINDINGS: Stable slightly elevated right hemidiaphragm. Chronic parenchymal changes with faint multi focal peripheral opacities redemonstrated. No pleural effusion or pneumothorax seen bilaterally. Card iac silhouette size remains within normal limits. Retrocardiac opacity could reflect hiatal hernia is redemonstrated. Correlate clinically. Osseous structures are intact. IMPRESSION: Chronic changes with bilateral faint multifocal opacities correlate to exclude covid-19 i nfection. No significant change from most recent x-ray.
[2020-10-16] MEDS: PANTOPRAZOLE 40 MG TABLET PO SCH (08:35)
[2020-10-16] MEDS: VALSARTAN 80 MG TAB PO SCH (08:35)
[2020-10-16] MEDS: DEXAMETHASONE SOD PHOSPHATE 10 MG/ML 1 ML VIAL IV SCH (08:35)
[2020-10-16] MEDS: hydroCHLOROthiazide 12.5 MG CAP PO SCH (08:35)
[2020-10-16] MEDS: ASPIRIN 81 MG PO SCH (08:35)
[2020-10-16] MEDS: MULTIVITAMINS, THERA 1 EACH TAB PO SCH (08:35)
[2020-10-16] MEDS: VIT A,C & E-LUTEIN-MINERALS 1 EACH TAB PO SCH (08:35)
[2020-10-16] MEDS: ENOXAPARIN 40 MG/0.4 ML SYRINGE SQ SCH (08:36)
[2020-10-16] MEDS ORDERED: CALCIUM CARB-VIT D 500 MG-5 MCG TAB PO SCH (09:00)
[2020-10-16 09:55] LABS: African American GFR (CKD) 110.9 (60.0-200.0); Albumin 3.5 g/dL (3.80-4.90); Albumin/Globulin Ratio 1.52 (1.60-3.17); Anion Gap 7.6 mmol/L (4.00-12.00); BUN/Creat Ratio 23.33 Ratio (12.00-20.00); Calcium 8.3 mg/dL (8.7-10.3); Carbon Dioxide 28.4 mmol/L (21.6-31.8); Globulin 2.3 g/dL (1.6-3.3); Non-African American GFR(CKD) 95.7 (60.0-200.0); Potassium 3.9 mmol/L (3.5-5.5); Total Bilirubin 0.5 mg/dL (0.2-1.2); Total Protein 5.8 g/dL (6.2-8.2)
[2020-10-16 10:43] LABS: HCT 38.3 % (37.2-46.3); HGB 12.7 g/dL (12.0-15.0); MCH 29.7 pg (27.0-32.0); MCHC 33.2 g/dL (32.0-37.0); MCV 89.7 fL (80.0-97.0); RBC 4.27 X 10*6/uL (4.10-5.20); WBC 5.68 X 10*3/uL (4.50-10.00)
[2020-10-16 10:44] LABS: Basophils # (A) 0 X 10*3/uL (0.00-0.10); Basophils % (A) 0 %; Eosinophils # (A) 0 X 10*3/uL (0.04-0.35); Eosinophils % (A) 0 %; Lymphocytes # (A) 0.98 X 10*3/uL (0.90-5.00); Lymphocytes % (A) 17.3 %; Mean Platelet Volume 12.2 fL (9.5-12.2); Monocytes # (A) 0.33 X 10*3/uL (0.20-1.00); Monocytes % (A) 5.8 %; Neutrophils # (A) 4.35 X 10*3/uL (1.80-7.70); Neutrophils % (A) 76.5 %; Platelet Count 231 X 10*3/uL (140-440); RDW 12.4 % (11.5-14.5)
[2020-10-16 11:28] VITALS: BP 145/82; PULSE 80; RESP 18; TEMP 98.4
--- NOTE | 2020-10-16 11:36 | P.DS ---
Providers Date of admission: 10/14/20 19:25 Expected date of discharge: 10/16/20 Attending physician: Catracho Santillan Consults: 10/14/20 19:25 Consult Physician Routine Consulting Provider: Guillermo Coronado Consult Reason/Comments: COVID PNA Do you want consulting provider notified?: Yes 10/15/20 09:43 Consult Physician Routine Consulting Provider: Merrick Messina Consult Reason/Comments: covid 19 pneumonia Do you want consulting provider notified?: Yes Primary care physician: [facility] Course: Diagnoses on discharge: 1. COVID-19 infection with bilateral mid zones infiltrates on chest x-ray suggestive of pneumonia, patient had fever, shortness of breath and cough for the last 10 days, she had elevated temperature of 101.1 last night, patient received BAM/ETE on 10/13/2020 without significant improvement of her symptoms, symptoms improved after she received IV Decadron in the emergency room, at this time patient still having some cough otherwise no complaints, will continue to monitor will recheck chest x-ray in a.m.. 2. Mildly elevated liver enzymes, will monitor closely, with check liver ultrasound in the outpatient setting if not improving. 3. History of seasonal ALLERGIES maintained on Singulair 4. Underlying history of hypothyroidism 5. Underlying history of gastroesophageal reflux disease 6. Previous history of kidney stones 7. Previous history of valvular cancer Hospital course: Audrey Ceja, a 65-year-old female who presented to [facility] emergency room with a chief complaint of cough and worsening shortness of breath, patient was diagnosed with COVID-19 infection at a walk in clinic 10 days prior to this presentation, initially her symptoms were minimal however she started developing worsening cough and shortness of breath, on the night prior to this admission she presented to emergency room with similar symptoms at that time she was given infusion of BAM/ETE and was discharged home, however her symptoms continue to worsen and she presented again to emergency room for further evaluation. Chest x-ray was done on the first presentation to emergency room on 10/13/2020 and revealed vague densities within the mid lung zones that may reflect developing pneumonia, chest x-ray was not repeated at this time. Patient was evaluated in the emergency room, vital examination on presentation revealed a temperature of 98.1 pulse 100 respiration 20 blood pressure 132/80 and pulse ox 96% on room air, during the last night patient had an elevated temperature of 101.1 and a decreased O2 sat duration down to 90% on room air, laboratory data revealed a white blood count of 4.9 hemoglobin 15.0 platelet count 182 sodium 138 potassium 3.1 chloride 95 CO2 33 BUN 13 creatinine 0.65, liver enzymes were slightly elevated with AST 72 a LT 65 and alkaline phosphatase 153 LDH was elevated at 948 pro-calcitonin slightly high at 0.22 patient was started on IV Decadron and subcu Lovenox and was admitted to medical floor for further evaluation and treatment. On 10/16/2020 Patient was seen and examined on the medical floor, she is alert and oriented x 3 in no distress, she is complaining of cough otherwise she denies any complaints there is no fever or chills no headache or dizziness no chest pain no shortness of breath no palpitation no cough no nausea or vomiting no abdominal pain no diarrhea no blood in the stools no burning with urination no frequency or urgency and no hematuria, there is no weakness or numbness in any of the extremities no change in vision speech or gait. Patient improved significantly with IV Decadron at this time will switch to oral Decadron and discharged patient to home she was instructed to return to the hospital if symptoms are worsening again chest x-ray still reveals bilateral hazy opacities, without change since 10/13/2020. Patient Condition at Discharge: Stable Plan - Discharge Summary Discharge Rx Participant: No New Discharge Prescriptions: New Albuterol Inhaler [Ventolin Hfa Inhaler] 2 puff INHALATION RT-Q4H puff Dexamethasone [Decadron] 4 mg PO BID 10 Days #20 tablet Continue Levothyroxine Sodium [Synthroid] 50 mcg PO DAILY Calcium Carbonate/Vitamin D3 [Calcium 600-Vit D3 5 Mcg (200 Iu)] 1 tab PO DAILY Aspirin [Adult Low Dose Aspirin EC] 81 mg PO DAILY Vit C/E/Zn/Coppr/Lutein/Zeaxan [Preservision Areds 2 Softgel] 1 cap PO DAILY Valsartan/Hydrochlorothiazide [Valsartan-Hctz 80-12.5 mg Tab] 1 tab PO DAILY Omeprazole 20 mg PO DAILY Multivit/Folic Acid/Vit K1 [One-A-Day Women's 50 Plus Tab] 1 tab PO DAILY Montelukast [Singulair] 10 mg PO HS Discharge Medication List Aspirin [Adult Low Dose Aspirin EC] 81 mg PO DAILY 12/17/18 [History] Calcium Carbonate/Vitamin D3 [Calcium 600-Vit D3 5 Mcg (200 Iu)] 1 tab PO DAILY 12/17/18 [History] Levothyroxine Sodium [Synthroid] 50 mcg PO DAILY 12/17/18 [History] Montelukast [Singulair] 10 mg PO HS 12/17/18 [History] Multivit/Folic Acid/Vit K1 [One-A-Day Women's 50 Plus Tab] 1 tab PO DAILY 12/17/18 [History] Omeprazole 20 mg PO DAILY 12/17/18 [History] Valsartan/Hydrochlorothiazide [Valsartan-Hctz 80-12.5 mg Tab] 1 tab PO DAILY 12/17/18 [History] Vit C/E/Zn/Coppr/Lutein/Zeaxan [Preservision Areds 2 Softgel] 1 cap PO DAILY 12/17/18 [History] Albuterol Inhaler [Ventolin Hfa Inhaler] 2 puff INHALATION RT-Q4H puff 10/16/20 [Rx] Dexamethasone [Decadron] 4 mg PO BID 10 Days #20 tablet 10/16/20 [Rx] Follow up Appointment(s)/Referral(s): Catracho Santillan MD [Primary Care Provider] - 1-2 days
--- NOTE | 2020-10-16 14:14 | PN ---
PROGRESS NOTE PULMONARY/CRITICAL CARE PROGRESS NOTE: DATE OF SERVICE: 10/16/2020 INTERVAL HISTORY: 65-year-old female that we saw yesterday in consultation. She recently tested positive for coronavirus. She was in the emergency room, and received monoclonal antibody. She has a history of seasonal allergies, gastroesophageal reflux disease, vulvar cancer, hypothyroidism, and kidney stones. She apparently was sent back to the hospital by her primary care provider and was admitted. The patient really never had any pulmonary complaints and was always on room air. Her chest x-ray really showed only minimal abnormalities. In my opinion, the patient really did not need admission to the hospital. Also, we felt the patient was not a candidate for Lovenox, Decadron, Remdesivir, tocilizumab, and only was a candidate for vitamins. PHYSICAL EXAMINATION: VITAL SIGNS: Current vital signs include temperature 98.4, heart rate 80, respiratory rate 18, blood pressure 145/82, mean 103 and room air saturation 95%. Appears in no acute distress. HEENT: Examination is grossly unremarkable. Neck is supple full range of motion. No adenopathy. Neck veins are flat. CARDIOVASCULAR: Examination reveals regular rhythm rate. Heart rate is 80 beats per minute. S1, S2 normal. LUNGS: Clear. Breath sounds equal. ABDOMEN: Soft. Bowel sounds are heard. EXTREMITIES are intact. No cyanosis, clubbing, or edema. SKIN: Without rash. NEUROLOGIC: Examination is nonfocal. LABS: Reviewed. White count 5.6, hemoglobin 12.7, hematocrit 38.3, platelet count 231,000. Sodium, potassium, chloride and CO2 all normal. Anion gap normal. BUN and creatinine were normal. C-reactive protein was 9. Procalcitonin level was 0.22. The rest of the labs all look good. A chest x-ray done today shows chronic changes with bilateral faint multifocal opacities. ASSESSMENT: 1. Coronavirus infection with no significant pulmonary complaints at this time and no clear evidence of COVID-19 pneumonia. 2. History of recently receiving monoclonal antibody for coronavirus infection. 3. History of seasonal allergies. 4. History of gastroesophageal reflux disease. 5. History of vulvar cancer. 6. History of hypothyroidism. 7. History of kidney stones. PLAN: In my opinion the patient could be discharged home. She should be on vitamin C, vitamin D3, and zinc. She does not need Decadron at this time. No antibiotics at this time. Additional recommendations and suggestions are forthcoming. If she develops any respiratory complaints, she should come back to the hospital. MMODL / IJN: [id number] /
== END 2020-10-16 12:45 | disposition home or self-care (01) | DRG 177 ==
LOC: EC 17:53 → 4SSUR 19:25
PROVIDERS: ADMIT Internal Medicine; ATTEND Internal Medicine
PROC: 3E0333Z Introduction of Anti-inflammatory into Peripheral Vein, Percutaneous Approach (ICD-10-PCS; principal; 2020-10-14)
DX: U07.1 COVID-19 (principal); J12.82 Pneumonia due to coronavirus disease 2019; Z79.82 Long term (current) use of aspirin; Z79.890 Hormone replacement therapy; Z87.442 Personal history of urinary calculi; Z85.44 Personal history of malignant neoplasm of other female genital organs; Z90.49 Acquired absence of other specified parts of digestive tract; K21.9 Gastro-esophageal reflux disease without esophagitis; I10 Essential (primary) hypertension; Z87.891 Personal history of nicotine dependence; Z80.9 Family history of malignant neoplasm, unspecified; E03.9 Hypothyroidism, unspecified; J30.2 Other seasonal allergic rhinitis
CPT/HCPCS: 71045; 80053; 82728; 83605; 83615; 83735; 84145; 85025; 85379; 85610; 85730; 86140; 93005; 94640; 99285

== ENCOUNTER → 2021-04-18 | Outpatient (CLI) | payer MEDICARE ==
--- NOTE | 2021-04-19 10:26 | MM ---
Reason for exam: screening (asymptomatic). Last mammogram was performed 1 year and 1 month ago. History: Patient is postmenopausal, has history of other cancer at age 50, and had first child at age 31. Family history of breast cancer in mother at age 65. Cyst aspiration of the left breast. Cyst aspiration of the right breast. Physical Findings: A clinical breast exam by your physician is recommended on an annual basis and results should be correlated with mammographic findings. MG 3D Screening Mammo W/Cad Bilateral CC and MLO view(s) were taken. Prior study comparison: March 04, 2020, bilateral MG 3d screening mammo w/cad. December 15, 2018, bilateral MG 3d screening mammo w/cad. The breast tissue is heterogeneously dense. This may lower the sensitivity of mammography. There is no discrete abnormality. No significant changes when compared with prior studies. ASSESSMENT: Negative, BI-RAD 1 RECOMMENDATION: Routine screening mammogram of both breasts in 1 year.
== END | disposition home or self-care (01) ==
LOC: RADMAMWWP 09:51
PROVIDERS: ATTEND Obstetrics & Gynecology
DX: Z12.31 Encounter for screening mammogram for malignant neoplasm of breast (principal); Z85.89 Personal history of malignant neoplasm of other organs and systems; Z78.0 Asymptomatic menopausal state
CPT/HCPCS: 77063; 77067

== ENCOUNTER → 2022-04-23 | Outpatient (CLI) | payer MEDICARE ==
--- NOTE | 2022-04-24 08:58 | MM ---
Reason for Exam: Screening (asymptomatic). Last screening mammogram was performed 12 month(s) ago. Patient History: Menarche at age 12. First Full-Term at age 31. Late child-bearing (after 30). Postmenopausal. Cyst Aspiration on the Right side. Cyst Aspiration on the Left side. Mother had breast cancer, age 65. Risk Values: Gertrude 5 year model risk: 3.4%. NCI Lifetime model risk: 11.8%. Prior Study Comparison: 12/15/2018 Bilateral Screening Mammogram, [facility]. 03/04/2020 Bilateral Screening Mammogram, [facility]. 04/18/2021 Bilateral Screening Mammogram, [facility]. Tissue Density: The breast tissue is heterogeneously dense. This may lower the sensitivity of mammography. Findings: Analyzed By CAD. Occasional tiny benign-appearing round calcification throughout the bilateral breasts is redemonstrated. There is no suspicious new group of microcalcifications or new suspicious mass in either breast. Overall Assessment: Benign, BI-RAD 2 Management: Screening Mammogram of both breasts in 1 year. A clinical breast exam by your physician is recommended on an annual basis and results should be correlated with mammographic findings. Electronically signed and approved by: Alejandro Lane M.D.
== END | disposition home or self-care (01) ==
LOC: RADMAMWWP 09:16
PROVIDERS: ATTEND Obstetrics & Gynecology
DX: Z12.31 Encounter for screening mammogram for malignant neoplasm of breast (principal); Z78.0 Asymptomatic menopausal state; Z80.3 Family history of malignant neoplasm of breast; Z98.890 Other specified postprocedural states
CPT/HCPCS: 77063; 77067

== ENCOUNTER → 2023-04-25 | Outpatient (CLI) | payer OTHER ==
--- NOTE | 2023-04-26 12:14 | MM ---
Reason for Exam: Screening (asymptomatic). Last screening mammogram was performed 12 month(s) ago. Patient History: Menarche at age 12. First Full-Term at age 31. Late child-bearing (after 30). Postmenopausal. Cyst Aspiration on the Right side. Cyst Aspiration on the Left side. Mother had breast cancer, age 65. Risk Values: Gertrude 5 year model risk: 3.4%. NCI Lifetime model risk: 11.4%. Prior Study Comparison: 03/04/2020 Bilateral Screening Mammogram, [facility]. 04/18/2021 Bilateral Screening Mammogram, [facility]. 04/23/2022 Bilateral MG 3D screening mammo w/cad, [facility]. Tissue Density: The breast tissue is heterogeneously dense. This may lower the sensitivity of mammography. Findings: Analyzed By CAD. There is no suspicious group of microcalcifications or new suspicious mass. Overall Assessment: Negative, BI-RAD 1 Management: Screening Mammogram of both breasts in [address] [facility] will attempt to contact patient to return for supplemental views and ultrasound if indicated. Patient should continue monthly self-breast exams. A clinical breast exam by your physician is recommended on an annual basis. This exam should not preclude additional follow-up of suspicious palpable abnormalities. Note on Gertrude scores and lifetime risk: 1. A Gertrude score greater than 3% is considered moderate risk. If this is the case, consider specialist referral to assess eligibility for a risk reducing agent. 2. If overall lifetime risk for the development of breast cancer is 20% or higher, the patient may qualify for future screening with alternating mammogram and breast MRI. Electronically signed and approved by: Guillermo Flannery DO
== END | disposition home or self-care (01) ==
LOC: RADMAMWWP 10:07
PROVIDERS: ATTEND Obstetrics & Gynecology
DX: Z12.31 Encounter for screening mammogram for malignant neoplasm of breast (principal); Z78.0 Asymptomatic menopausal state; Z80.3 Family history of malignant neoplasm of breast
CPT/HCPCS: 77063; 77067

== ENCOUNTER → 2023-05-03 | Outpatient (CLI) | payer MEDICARE ==
--- NOTE | 2023-05-03 12:03 | US ---
EXAMINATION TYPE: US liver DATE OF EXAM: 05/03/2023 COMPARISON: US CLINICAL INDICATION: Female, 68 years old with history of R74.01 ELEVATED LIVER ENZYMES; Elevated LFT 's, GB surgically absent TECHNIQUE: Multiple sonographic images of the right upper quadrant are obtained. FINDINGS: EXAM MEASUREMENTS: Liver Length: 18.3 cm CBD: 0.7 cm Right Kidney: 11.2 x 4.9 x 5.0 cm Pancreas: wnl, tail obscured by overlying bowel gas Liver: Enlarged, heterogeneous, difficult to penetrate, hypoechoic lesion right lobe anterior to righ t kidney= 2.2 x 2.0 x 2.3 cm. Similar in size and appearance when compared to prior Gallbladder: Surgically absent Evidence for sonographic Persaud's sign: No CBD: wnl, post annie Right Kidney: wnl IMPRESSION: 1. Hepatic steatosis 2. Hepatomegaly 3. Simple appearing hepatic cyst.
== END | disposition home or self-care (01) ==
LOC: RADUSWWP 10:02
PROVIDERS: ATTEND Internal Medicine
DX: K76.0 Fatty (change of) liver, not elsewhere classified (principal); R74.01 Elevation of levels of liver transaminase levels; K76.89 Other specified diseases of liver; R16.0 Hepatomegaly, not elsewhere classified
CPT/HCPCS: 76705

== ENCOUNTER → 2024-02-06 | Outpatient (CLI) | payer MEDICARE ==
--- NOTE | 2024-02-06 11:58 | US ---
EXAMINATION TYPE: US kidneys/renal and bladder DATE OF EXAM: 02/06/2024 COMPARISON: NONE CLINICAL INDICATION: Female, 68 years old with history of R10.9 UNSPECIFIED ABDOMINAL PAIN; Pain left side. EXAM MEASUREMENTS: Right Kidney: 11.7 x 4.8 x 4.0 cm Left Kidney: 11.5 x 5.0 x 4.2 cm Right Kidney: No hydronephrosis or masses seen Left Kidney: Echogenic area seen Bladder: anechoic Bilateral Jets seen: yes There is no evidence for hydronephrosis at this point in time. Renal cortical echogenicity and thickn ess is within normal limits. No masses are identified. The urinary bladder is anechoic. Bilateral u reteral jets are seen. IMPRESSION: There is an area of increased echogenicity involving the left kidney of uncertain etiology and questi onable significance. Recommend follow-up CT scan of the abdomen.
== END | disposition home or self-care (01) ==
LOC: RADUSWWP 08:08
PROVIDERS: ATTEND Internal Medicine
DX: R10.9 Unspecified abdominal pain (principal)
CPT/HCPCS: 76770

== ENCOUNTER → 2024-02-21 | Outpatient (CLI) | payer MEDICARE ==
[2024-02-21 11:01] LABS: African American GFR (CKD) 87 (>60 ml/min/1.73 sqM); Blood Urea Nitrogen 17 mg/dL (7-17); Non-African American GFR(CKD) 75 (>60 ml/min/1.73 sqM)
--- NOTE | 2024-02-21 12:47 | CT ---
EXAMINATION TYPE: CT abdomen w con CT DLP: 886.20 mGycm, Automated exposure control for dose reduction was used. DATE OF EXAM: 02/21/2024 12:03 PM COMPARISON: Ultrasound liver 05/03/2023, ultrasound kidney 02/06/2024 CLINICAL INDICATION:Female, 68 years old with history of R93.89 ABN FINDINGS; ABNORMAL US FINDINGS TECHNIQUE: Standard CT of the abdomen following the administration of 100 cc of Isovue 300 IV contr ast material and oral contrast. Delayed imaging was obtained. Coronal and sagittal reformats were per formed. FINDINGS: LOWER CHEST: Minimal dependent right lower lobe subsegmental atelectasis. Left posterior fat filled s mall Bochdalek hernia. ABDOMEN LIVER: Diffusely hypoattenuating parenchyma. Right hepatic lobe lower 2.0 cm hypodense lesion consist ent with a cyst. GALLBLADDER AND BILE DUCTS: The gallbladder is surgically absent. No biliary ductal dilatation. PANCREAS: Unremarkable. SPLEEN: Unremarkable. ADRENAL GLANDS: Unremarkable. KIDNEYS AND URETERS: No evidence of hydronephrosis. Nonobstructive left upper pole 8 mm renal calculu s. The kidneys enhance symmetrically. No suspicious enhancing renal lesion. Contrast is demonstrated within both collecting systems on the delayed phase. STOMACH AND BOWEL: Small hiatal hernia, duodenum is unremarkable. Enteric contrast reaches the large bowel. No focal bowel wall thickening or surrounding inflammatory changes. No evidence of bowel obstr uction. PERITONEUM: No evidence of pneumoperitoneum or free fluid. VASCULATURE: No evidence of aortic aneurysm. MUSCULOSKELETAL: No acute osseous abnormalities. Degenerative disc disease L5-S1. Grade 1 anterolisth esis of L3 on L4 without evidence of pars defects. LYMPH NODES: No gross evidence for lymphadenopathy. SOFT TISSUE/ABDOMINAL WALL: Tiny fat filled umbilical hernia. IMPRESSION: 1. Nonobstructive 8 mm left upper pole renal calculus likely corresponds to ultrasound finding. 2. Hepatic steatosis with hepatic cyst. [facility], , 02/21/2024 12:44 PM
== END | disposition home or self-care (01) ==
LOC: RADCTMAIN 10:16
PROVIDERS: ATTEND Internal Medicine
CPT/HCPCS: 36415; 74160; 82565; 84520

== ENCOUNTER → 2024-02-26 | Outpatient (CLI) | payer MEDICARE ==
[2024-02-26 16:49] LABS: Basophils # (A) 0.05 X 10*3/uL (0.00-0.10); Basophils % (A) 0.8 %; Eosinophils # (A) 0.04 X 10*3/uL (0.04-0.35); Eosinophils % (A) 0.6 %; HCT 48.9 % (37.2-46.3); HGB 16.4 g/dL (12.0-15.0); Lymphocytes # (A) 1.16 X 10*3/uL (0.90-5.00); Lymphocytes % (A) 18.5 %; MCH 29.8 pg (27.0-32.0); MCHC 33.5 g/dL (32.0-37.0); MCV 88.9 FL (80.0-97.0); Mean Platelet Volume 10.8 FL (9.5-12.2); Monocytes # (A) 0.49 X 10*3/uL (0.20-1.00); Monocytes % (A) 7.8 %; NRBC Per 100 WBC 0 X 10*3/uL (0.00-0.01); Neutrophils # (A) 4.53 X 10*3/uL (1.80-7.70); Neutrophils % (A) 72.1 %; Platelet Count 257 X 10*3/uL (140-440); RDW 12.1 % (11.5-14.5); WBC 6.28 X 10*3/uL (4.50-10.00)
[2024-02-26 17:00] LABS: BUN/Creat Ratio 13.22 Ratio (12.00-20.00); Blood Urea Nitrogen 11.9 mg/dL (9.0-27.0); Carbon Dioxide 30.3 mmol/L (21.6-31.8); Chloride 99 mmol/L (96-109); Glucose 107 mg/dL (70-110); Potassium 4.4 mmol/L (3.5-5.5); Sodium 141 mmol/L (135-145)
== END | disposition home or self-care (01) ==
LOC: LABPAT 11:42
PROVIDERS: ATTEND Urology
DX: Z01.818 Encounter for other preprocedural examination
CPT/HCPCS: 80048; 85025

== ENCOUNTER 2024-03-03 13:50 | Day surgery (SDC) | payer MEDICARE ==
[2024-02-28 13:01] VITALS: BMI 29.4
--- NOTE | 2024-03-03 10:30 | P.HPIHPCON ---
History of Present Illness H&P Date: 03/03/24 Chief Complaint: Left renal stone This is a 68-year-old female with history of a 8 mm left-sided upper pole stone she is having symptomatic flank pain. Discussed given the size of the stone this could be contributing to her flank pain, discussed potential of persistent pain even with stone removal. Option of left-sided ureteroscopy with holmium laser versus ESWL was discussed with her. She agreed to proceed with left-sided ureteroscopy with holmium laser, aware of the risk which includes but not limited to bleeding, infection, injury to the ureter Consent for Procedure: I have explained the operation/procedure to the patient, including the risks, benefits, side effects, alternative therapies (including not receiving the proposed treatment or service), the likelihood of the patient achieving his/her goals, and potential recuperation problems for the procedure/sedation/analgesia, as well as any blood products, if indicated. I also explained to the patient the risks, benefits and side effects of the alternatives, as well as the risks related to not receiving the proposed procedure, care, treatment, or services. Past Medical History Past Medical History: Cancer, GERD/Reflux, Hypertension, Thyroid Disorder Additional Past Medical History / Comment(s): HX VULVA CANCER(LIMITED TO SKIN) 2004, KIDNEY STONES, SEASONAL ALLERGIES. History of Any Multi-Drug Resistant Organisms: None Reported Past Surgical History: Cholecystectomy Additional Past Surgical History / Comment(s): COLONOSCOPY, KIDNEY STONE REMOVAL, VULVA CANCER REMOVAL-SEVERAL PROCEDURES. Past Anesthesia/Blood Transfusion Reactions: Postoperative Nausea & Vomiting (PONV) Additional Past Anesthesia/Blood Transfusion Reaction / Comment(s): Son passes out after anesthesia. Smoking Status: Former smoker - Past Family History Father Family Medical History: Cancer Mother Family Medical History: Cancer, Deep Vein Thrombosis (DVT) Sister(s) Family Medical History: Cancer Medications and Allergies Home Medications Medication Instructions Recorded Confirmed Type Aspirin [Adult Low Dose Aspirin EC] 81 mg PO DAILY 12/17/18 02/28/24 History Levothyroxine Sodium [Synthroid] 50 mcg PO QAM 12/17/18 02/28/24 History Montelukast [Singulair] 10 mg PO HS 12/17/18 02/28/24 History Multivit/Folic Acid/Vit K1 1 tab PO DAILY 12/17/18 02/28/24 History [One-A-Day Women's 50 Plus Tab] Omeprazole 20 mg PO QAM 12/17/18 02/28/24 History Valsartan/Hydrochlorothiazide 1 tab PO QAM 12/17/18 02/28/24 History [Valsartan-Hctz 80-12.5 mg Tab] Vit C/E/Zn/Coppr/Lutein/Zeaxan 1 cap PO DAILY 12/17/18 02/28/24 History [Preservision Areds 2 Softgel] Fluticasone Nasal [place] [Flonase 1 spray EA NOSTRIL DAILY PRN 02/28/24 02/28/24 History Nasal [place]] Vitamin C + Vitamin D 1 tab PO DAILY 02/28/24 02/28/24 History amLODIPine BESYLATE 5 mg PO HS 02/28/24 02/28/24 History Allergies Allergy/AdvReac Type Severity Reaction Status Date / Time Sulfa (Sulfonamide Allergy Anaphylaxis Verified 02/28/24 12:32 Antibiotics) ciprofloxacin [From Cipro] AdvReac STIFF NECK Verified 02/28/24 12:32 Surgical - Exam - General no distress, moderate pain - Eyes normal ocular movement, no pale - ENT normal nares, normal mucosa - Respiratory normal expansion, normal respiratory effort - Abdomen Abdomen: soft, non tender Assessment and Plan Assessment: OR for left-sided ureteroscopy, millimeter lithotripsy, stone basketing and stent insertion
[~2024-03-03 13:50] MED LIST changes: +HYDROmorphone 0.5 MG/0.5 ML SYRINGE IVP PRN; -LACTATED RINGERS 1,000 ML IV SCH; -LIDOCAINE 1% 20 ML VIAL (10MG/ML) FOR IV START INTRADERMA PRN; +MIDAZOLAM 2 MG/2 ML VIAL IV PRN
[2024-03-03] MEDS: IV FLUID CONTINUATION 1,000 ML IV ONE (14:18)
--- NOTE | 2024-03-03 14:18 | XR ---
EXAMINATION TYPE: XR KUB DATE OF EXAM: 03/03/2024 Comparison: CT 02/21/2024 Clinical History: 68-year-old female preop renal stone, N20.0 Findings: Tiny pelvic phleboliths. Nonobstructive bowel gas pattern. Scattered mild stool burden. 8mm calcifica tion at the left upper quadrant. Impression: 8 mm left renal stone. Nonobstructive bowel gas pattern. [facility], , 03/03/2024 2:16 PM
[2024-03-03] MEDS: LACTATED RINGERS 1,000 ML IV SCH (14:27)
[2024-03-03] MEDS: DEXAMETHASONE SOD PHOSPHATE 4 MG/ML 1 ML VIAL IV ONE (14:28)
[2024-03-03] MEDS: ONDANSETRON 4 MG/2 ML VIAL IVP ONE (14:28)
[2024-03-03] MEDS ORDERED: fentaNYL (PF) 50 MCG/ML 2 ML AMP ONE (16:53)
[2024-03-03] MEDS ORDERED: SUCCINYLCHOLINE CHLORIDE 200 MG/10 ML VIAL IV ONE (16:53)
[2024-03-03] MEDS ORDERED: ROCURONIUM 10 MG/ML (5 ML VIAL) IV ONE (16:53)
[2024-03-03] MEDS ORDERED: PROPOFOL 10 MG/ML 20 ML VIAL IV ONE (16:53)
[2024-03-03] MEDS ORDERED: NEOSTIGMINE 1 MG/ML 10 ML VIAL ONE (16:53)
[2024-03-03] MEDS ORDERED: MIDAZOLAM 2 MG/2 ML VIAL ONE (16:53)
[2024-03-03] MEDS: SODIUM CHLORIDE 0.9% 100 ML with ceFAZolin 2,000 MG IV ONE (16:53)
[2024-03-03] MEDS ORDERED: LIDOCAINE 1% INJ 10MG/ML (20 ML MDV) ONE (16:53)
[2024-03-03] MEDS ORDERED: GLYCOPYRROLATE 0.2 MG/ML 2 ML VIAL ONE (16:53)
[2024-03-03 17:43] VITALS: RESP 14; TEMP 97.3
--- NOTE | 2024-03-03 17:53 | FL ---
EXAMINATION TYPE: FL guidance operating room DATE OF EXAM: 03/03/2024 FLUOROSCOPY LEFT SIDE RENAL STONE WITH DR. JOHNSON 3.8 S FL TIME [id number] DAP 2 images submitted. [facility], , 03/03/2024 5:51 PM
--- NOTE | 2024-03-03 17:58 | P.OP ---
Date of Procedure: 03/03/24 Preoperative Diagnosis: Left renal stone Postoperative Diagnosis: Same Procedure(s) Performed: Cystoscopy, left ureteroscopy, holmium laser lithotripsy, stone basketing and stent insertion Implants: 6 Georgian by 24 cm stent in the left ureter Anesthesia: OPHELIA Surgeon: Arsalan Sosa Estimated Blood Loss (ml): 5 Pathology: other (Left renal stone) Condition: stable Disposition: PACU Indications for Procedure: This is a 68-year-old female with history of a 8 mm left-sided upper pole stone she is having symptomatic flank pain. Discussed given the size of the stone this could be contributing to her flank pain, discussed potential of persistent pain even with stone removal. Option of left-sided ureteroscopy with holmium laser versus ESWL was discussed with her. She agreed to proceed with left-sided ureteroscopy with holmium laser, aware of the risk which includes but not limited to bleeding, infection, injury to the ureter Operative Findings: Large stone in the left upper pole, stone was obstructing the calyx Description of Procedure: Patient brought to the operating room, general anesthesia was induced. She was prepped and draped in sterile fashion and placed in dorsolithotomy position. Cystoscopy through the 21 Georgian sheath was inserted per urethra cystoscopy was performed showed no abnormality within the bladder. Attention was then carried to the left ureteral orifice which was intubated with a sensor wire. The wire was advanced under fluoroscopy into the left kidney. Next under fluoroscopy and 1113 Georgian access sheath was passed over the wire into the proximal ureter. Next a flexible ureteroscope was inserted through the access sheath, renoscopy was performed showed a large stone in the upper pole, of note it was obstructing the infundibulum of the upper pole, with calyceal dilation. Using the holmium laser the stone was dusted, any sizable fragments were removed using the stone basket. Repeat renoscopy showed no sizable fragments or injury to the kidney, pullback ureteroscopy was performed showed no injury to the ureter or any ureteral stones, as ureteroscope was withdrawn a sensor wire was advanced through. Next a ureteral stent was passed over the wire, the proximal curl was realized on fluoroscopy and the distal curl was visualized in the cystoscope. The bladder was emptied at the end of the case. Patient tolerated procedure well was taken to recovery in stable condition
[2024-03-03 18:35] VITALS: BP 118/76; PULSE 80
== END 2024-03-03 18:59 | disposition home or self-care (01) ==
LOC: OR 13:50
PROVIDERS: ATTEND Urology
DX: N20.0 Calculus of kidney
CPT/HCPCS: 74018; 82365

== ENCOUNTER → 2024-04-27 | Outpatient (CLI) | payer MEDICARE ==
--- NOTE | 2024-04-27 15:04 | MM ---
Reason for Exam: Screening (asymptomatic). Last mammogram was performed 1 year(s) and 1 month(s) ago. Patient History: Menarche at age 12. First Full-Term at age 31. Late child-bearing (after 30). Postmenopausal. Cyst Aspiration on the Right side. Cyst Aspiration on the Left side. Mother had breast cancer, age 65. Risk Values: Gertrude 5 year model risk: 3.4%. NCI Lifetime model risk: 10.9%. Prior Study Comparison: 04/18/2021 Bilateral Screening Mammogram, [facility]. 04/23/2022 Bilateral MG 3D screening mammo w/cad, [facility]. 04/25/2023 Bilateral MG 3D screening mammo w/cad, [facility]. Tissue Density: The breasts are heterogeneously dense, which may obscure small masses. Findings: Analyzed By CAD. There is no suspicious group of microcalcifications or new suspicious mass in either breast. Overall Assessment: Negative, BI-RAD 1 Management: Screening Mammogram of both breasts in 1 year. See note below in regards to patient's increased 5 year Gertrude score. Patient should continue monthly self-breast exams. A clinical breast exam by your physician is recommended on an annual basis. This exam should not preclude additional follow-up of suspicious palpable abnormalities. Note on Gertrude scores and lifetime risk: 1. A Gertrude score greater than 3% is considered moderate risk. If this is the case, consider specialist referral to assess eligibility for a risk reducing agent. 2. If overall lifetime risk for the development of breast cancer is 20% or higher, the patient may qualify for future screening with alternating mammogram and breast MRI. [facility], , 04/27/2024 3:01 PM. Electronically signed and approved by: Kyle Beltran M.D. Radiologist
== END | disposition home or self-care (01) ==
LOC: RADMAMWWP 09:34
PROVIDERS: ATTEND Obstetrics & Gynecology
DX: Z12.31 Encounter for screening mammogram for malignant neoplasm of breast (principal); R92.333 Mammographic heterogeneous density, bilateral breasts; Z78.0 Asymptomatic menopausal state; Z80.3 Family history of malignant neoplasm of breast
CPT/HCPCS: 77063; 77067